=== PATIENT | female | born 1970 | race Caucasian/White ===

== ENCOUNTER 2020-12-19 04:51 | Emergency (ER) | payer BC ==
[2020-12-19] MEDS ORDERED: Famotidine 20 MG/2 ML SDV IVPUSH ONE (05:04)
[2020-12-19] MEDS ORDERED: methylPREDNISolone Sodium Succinate 125 MG/2 ML SDV IVPUSH ONE (05:04)
[2020-12-19] MEDS ORDERED: EPINEPHrine 1 MG/ML SDV SUBCUT ONE (05:04)
--- NOTE | 2020-12-19 05:05 | EDM.PDOC ---
<Dannie Bell - Last Filed: 12/19/20 08:33> ED HPI GENERAL MEDICAL PROBLEM - General Chief Complaint: Allergic Reaction Stated Complaint: ALLERGIC REACTION- TONGUE SWOLLEN Time Seen by Provider: 12/19/20 04:54 - Related Data Allergies Allergy/AdvReac Type Severity Reaction Status Date / Time erythromycin base Allergy Vomiting Verified 12/19/20 04:57 Home Meds: Home Meds predniSONE 40 mg PO WITHBREAKFAST 5 Days #10 tab 12/19/20 [Rx] Course - Re-Assessments/Exams Free Text/Narrative Re-Assessment/Exam: 12/19/20 08:33 Patient remains without any symptoms. She notes that she has an EpiPen at home because this happened before. Recommend follow-up with process control technician. I prescribed her 5-day course of prednisone. Return precautions were discussed at length and patient understands Departure - Departure Time of Disposition: 08:34 Disposition: Home, Self-Care 01 Condition: Good Clinical Impression: Allergic reaction Qualifiers: Encounter type: initial encounter Qualified Code(s): T78.40XA - Allergy, unspecified, initial encounter - Discharge Information Prescriptions: predniSONE 40 mg PO WITHBREAKFAST 5 Days #10 tab Instructions: Allergies, Adult Referrals: Yareli Headley NP [Primary Care Provider] - Forms: ED Department Discharge Additional Instructions: The following information is given to patients seen in the emergency department who are being discharged to home. This information is to outline your options for follow-up care. We provide all patients seen in our emergency department with a follow-up referral. The need for follow-up, as well as the timing and circumstances, are variable depending upon the specifics of your emergency department visit. If you don't have a primary care physician on staff, we will provide you with a referral. We always advise you to contact your personal physician following an emergency department visit to inform them of the circumstance of the visit and for follow-up with them and/or the need for any referrals to a consulting specialist. The emergency department will also refer you to a specialist when appropriate. This referral assures that you have the opportunity for follow-up care with a specialist. All of these measure are taken in an effort to provide you with optimal care, which includes your follow-up. Under all circumstances we always encourage you to contact your private physic aicha who remains a resource for coordinating your care. When calling for follow- up care, please make the office aware that this follow-up is from your recent emergency room visit. If for any reason you are refused follow-up, please contact the [facility] Emergency Department at and asked to speak to the emergency department charge nurse. Please follow up with your primary care physician. If you do not have a primary care physician, see below: [facility] [address], [place] [id number] [facility] [address], [place] [id number] [facility] [address], [place] [address] <David Kirk - Last Filed: 12/20/20 02:38> ED HPI GENERAL MEDICAL PROBLEM - General Source of Information: Reports: Patient History Limitations: Reports: No Limitations - History of Present Illness INITIAL COMMENTS - FREE TEXT/NARRATIVE: Patient is a 50-year-old female presents today for tongue swelling. States that she woke up this morning around 4 AM and felt her tongue was swollen speaking bigger. Patient dates that is hard for her to speak but she is able to swallow and breathe without issue. She denies any known allergies states that she did get some hives a few days ago out of nowhere. Patient denies any rashes now difficulty breathing or swallowing just a swelling of her tongue. Past Medical History - Past Health History Medical/Surgical History: Denies Medical/Surgical History - Infectious Disease History Infectious Disease History: Reports: Chicken Pox, Measles, Mumps Social & Family History - Family History Family Medical History: No Pertinent Family History - Tobacco Use Tobacco Use Status *Q: Never Tobacco User - Caffeine Use Caffeine Use: Reports: None - Recreational Drug Use Recreational Drug Use: No ED ROS ALLERGIC REACTION - Review of Systems Review Of Systems: See Below Constitutional: Reports: No Symptoms HEENT: Reports: Other (Tongue swelling) Respiratory: Reports: No Symptoms Cardiovascular: Reports: No Symptoms Endocrine: Reports: No Symptoms GI/Abdominal: Reports: No Symptoms : Reports: No Symptoms Musculoskeletal: Reports: No Symptoms Skin: Reports: No Symptoms Neurological: Reports: No Symptoms Psychiatric: Reports: No Symptoms Hematologic/Lymphatic: Reports: No Symptoms Immunologic: Reports: No Symptoms ED EXAM GENERAL NO PERIP PULSE - Physical Exam Exam: See Below Exam Limited By: No Limitations General Appearance: Alert, WD/WN, Mild Distress Throat/Mouth: Other (Tongue swelling and large) Head: Atraumatic Neck: Normal Inspection Respiratory/Chest: No Respiratory Distress, Lungs Clear, Normal Breath Sounds Cardiovascular: Normal Peripheral Pulses, Regular Rate, Rhythm GI/Abdominal: Normal Bowel Sounds, Soft, Non-Tender Extremities: Normal Inspection Neurological: Alert, Oriented, CN II-XII Intact, Normal Cognition, Normal Gait Course - Vital Signs Last Recorded V/S: Last Vital Signs Temp 98.1 F 12/19/20 09:04 Pulse 82 12/19/20 09:04 Resp 20 12/19/20 09:04 BP 100/64 12/19/20 09:04 Pulse Ox 98 12/19/20 09:04 - Orders/Labs/Meds Labs: Laboratory Tests 12/19/20 12/19/20 Range/Units 05:20 05:20 WBC 7.70 (4.0-11.0) K/uL RBC 4.10 L (4.30-5.90) M/uL Hgb 13.2 (12.0-16.0) g/dL Hct 38.8 (36.0-46.0) % MCV 94.6 (80.0-98.0) fL MCH 32.2 H (27.0-32.0) pg MCHC 34.0 (31.0-37.0) g/dL RDW Std Deviation 45.5 (28.0-62.0) fl RDW Coeff of Iveth 13 (11.0-15.0) % Plt Count 356 (150-400) K/uL MPV 9.60 (7.40-12.00) fL Neut % (Auto) 45.3 L (48.0-80.0) % Lymph % (Auto) 40.3 H (16.0-40.0) % Leon % (Auto) 8.1 (0.0-15.0) % Eos % (Auto) 5.5 (0.0-7.0) % Baso % (Auto) 0.8 (0.0-1.5) % Neut # (Auto) 3.5 (1.4-5.7) K/uL Lymph # (Auto) 3.1 H (0.6-2.4) K/uL Leon # (Auto) 0.6 (0.0-0.8) K/uL Eos # (Auto) 0.4 (0.0-0.7) K/uL Baso # (Auto) 0.1 (0.0-0.1) K/uL Nucleated RBC % 0.0 /100WBC Nucleated RBCs # 0 K/uL Sodium 137 (136-145) mmol/L Potassium 4.1 (3.5-5.1) mmol/L Chloride 104 (98-107) mmol/L Carbon Dioxide 24.2 (21.0-32.0) mmol/L BUN 15 (7.0-18.0) mg/dL Creatinine 1.0 (0.6-1.0) mg/dL Est Cr Clr Drug Dosing 53.23 mL/min Estimated GFR (MDRD) 58.7 ml/min Glucose 100 (74-106) mg/dL Calcium 8.7 (8.5-10.1) mg/dL Meds: Medications Discontinued Medications Generic Name Dose Route Start Last Admin Trade Name Freq PRN Reason Stop Dose Admin Epinephrine HCl 0.3 mg 12/19/20 05:04 12/19/20 05:11 Epinephrine 1 Mg/Ml Sdv SUBCUT 12/19/20 05:05 0.3 mg ONETIME ONE Administration Famotidine 20 mg 12/19/20 05:04 12/19/20 05:13 Famotidine 20 Mg/2 Ml Sdv IVPUSH 12/19/20 05:05 20 mg ONETIME ONE Administration Tranexamic Acid 1,000 mg/ 110 mls @ 600 mls/hr 12/19/20 05:41 12/19/20 05:58 Sodium Chloride IV 12/19/20 05:51 600 mls/hr ONETIME ONE Administration Methylprednisolone Sodium Succinate 125 mg 12/19/20 05:04 12/19/20 05:14 Methylprednisolone Sodium Succinate 125 Mg/2 Ml Sdv IVPUSH 12/19/20 05:05 125 mg ONETIME ONE Administration Ondansetron HCl 4 mg 12/19/20 06:28 12/19/20 06:34 Ondansetron 4 Mg/2 Ml Sdv IVPUSH 12/19/20 06:29 4 mg ONETIME ONE Administration Critical Care Note - Critical Care Note Total Time (mins): 45 Comments: Critical Care Procedure Note Authorized and Performed by: Dr. Kirk Total critical care time: Approximately Due to a high probability of clinically significant, life threatening deterioration, the patient required my highest level of preparedness to intervene emergently and I personally spent this critical care time directly and personally managing the patient. This critical care time included obtaining a history; examining the patient; pulse oximetry; ordering and review of studies; arranging urgent treatment with development of a management plan; evaluation of patient's response to treatment; frequent reassessment; and, discussions with other providers. This critical care time was performed to assess and manage the high probability of imminent, life-threatening deterioration that could result in multi-organ failure. It was exclusive of separately billable procedures and treating other patients and teaching time. Sepsis Event Note (ED) - Evaluation Sepsis Screening Result: No Definite Risk - Assessment/Plan Plan: Patient is a 50-year-old female presents today for swelling of her tongue. Patient dates she has some hives a few days ago but is unsure came from has no k nown allergies has not come into contact with any new detergents or lotions. Patient comes here was swollen started become bigger. Initially gave her epi and steroids without much relief. We did gave her TXA which helped improve her symptoms. Patient has been stable will be signed to my colleague who observe her she stays stable can be discharged home.
[2020-12-19] MEDS ORDERED: Tranexamic Acid 1,000 MG in Sodium Chloride 0.9% 100 ML IV ONE (05:41)
[2020-12-19] MEDS ORDERED: Ondansetron 4 MG/2 ML SDV IVPUSH ONE (06:28)
[2020-12-19 06:55] LABS: CARBON DIOXIDE,CO2 24.2 mmol/L (21.0-32.0); POTASSIUM,K 4.1 mmol/L (3.5-5.1)
== END 2020-12-19 09:04 | disposition home or self-care (01) ==
LOC: MW.ED 04:51
DX: T78.40XA Allergy, unspecified, initial encounter (principal); Z88.1 Allergy status to other antibiotic agents
CPT/HCPCS: 80048; 85025; 96372; 96374; 96375; 99285; J0171; J2405; J2930; J3490

== ENCOUNTER 2021-02-07 23:55 | Emergency (ER) | payer BC ==
[2021-02-08] MEDS ORDERED: Sodium Chloride 0.9% 2.5 ML Syringe FLUSH PRN (00:16)
[2021-02-08] MEDS ORDERED: Dexamethasone 10 MG/ML SDV IVPUSH ONE (00:16)
[2021-02-08] MEDS ORDERED: diphenhydrAMINE 50 MG/ML SDV IVPUSH ONE (00:16)
[2021-02-08] MEDS ORDERED: Sodium Chloride 0.9% 10 ML Syringe FLUSH PRN (00:16)
[2021-02-08] MEDS ORDERED: Famotidine 20 MG/2 ML SDV IVPUSH ONE (00:17)
[2021-02-08] MEDS ORDERED: Tranexamic Acid 1,000 MG in Sodium Chloride 0.9% 100 ML IV ONE (00:17)
[2021-02-08] MEDS ORDERED: EPINEPHrine 1 MG/1 ML Amp SUBCUT ONE (00:17)
[2021-02-08] MEDS ORDERED: EPINEPHrine 1 MG/ML SDV ONE (00:19)
--- NOTE | 2021-02-08 00:20 | EDM.PDOC ---
ED HPI GENERAL MEDICAL PROBLEM - General Chief Complaint: Allergic Reaction Stated Complaint: FACE AND LIPS SWELLING Time Seen by Provider: 02/08/21 00:14 - History of Present Illness INITIAL COMMENTS - FREE TEXT/NARRATIVE: History of present illness: Patient's lips and face are swollen tonight. She has no airway problem and her voice is normal. She says she narrowly escaped intubation last time. She is also seeing the specialist who wants her to have C1 esterase inhibitor antigen C1 esterase inhibitor functional C4 complement and tryptase done today. She said tranexamic acid was the only thing that really saved her last time she was in the emergency department. I reviewed the chart and she received Benadryl Pepcid steroids and tranexamic acid as well as an epi injection when she was here last time. [] Review of systems: As per history of present illness and below otherwise all systems reviewed and negative. Past medical history: As per history of present illness and as reviewed below otherwise noncontrib utory. Surgical history: As per history of present illness and as reviewed below otherwise noncontributory. Social history: No reported history of drug or alcohol abuse. Family history: As per history of present illness and as reviewed below otherwise noncontributory. Physical exam: Constitutional - well developed, well-nourished and in no acute distress HEENT -patient has external swelling about the malar prominences in the lips. She has a normal voice no trismus no ptyalism and no trouble breathing. Normocephalic, no evidence of trauma - external nose and mouth normal - no mass in neck and no JVD - mucosae moist EYES - full EOM, PERRL, no icterus - no evidence of inflammation, injection, or drainage Respiratory - no respiratory distress, equal bilateral expansion, lungs clear to auscultation and no abnormal lung sounds Cardiovascular - Regular Rhythm with S1 and S2 appreciated and no murmur, gallop or rub. GI - abdomen soft without distension or organomegaly - normal bowel sounds - no guard or rebound Musculoskeletal no gross deformity of long bones or joints - no tenderness, swelling or edema Neurologic - Alert and oriented times four - CN II-XII grossly intact - motor sensory and coordination symmetrically normal Psychiatric - appropriate mood and affect with normal thought content Hematologic - No petechiae or purpura - mucosa appropriate color and sclera not pale - normal nail bed color and refill Integument - no rash or evidence of trauma - normal turgor Diagnostics: [] Therapeutics: [] Impression: [] Plan: [] Definitive disposition and diagnosis as appropriate pending reevaluation and review of above. - Related Data Allergies Allergy/AdvReac Type Severity Reaction Status Date / Time erythromycin base Allergy Vomiting Verified 12/19/20 04:57 Home Meds: Home Meds predniSONE 40 mg PO WITHBREAKFAST 5 Days #10 tab 12/19/20 [Rx] Past Medical History - Past Health History Medical/Surgical History: Denies Medical/Surgical History - Infectious Disease History Infectious Disease History: Reports: Chicken Pox, Measles, Mumps Social & Family History - Family History Family Medical History: No Pertinent Family History - Caffeine Use Caffeine Use: Reports: None ED ROS ALLERGIC REACTION - Review of Systems Review Of Systems: Comprehensive ROS is negative, except as noted in HPI. ED EXAM GENERAL NO PERIP PULSE - Physical Exam Exam: See Below Course - Vital Signs Text/Narrative:: I have requested the lab order C4 complement, tryptase, C 1 esterase inhibitor antigen and C1 esterase inhibitor functional. She has a specialist A1c's test done when she has an attack and therefore if it is possible will send these out tonight. 0050 a.m. the patient is no worse and no better. She does not have any airway involvement at this time. Her lips are swollen and not changed since before we started the medications that we're giving. 020 9 AM patient's labs are improved and she wants to be discharged. Last Recorded V/S: Last Vital Signs Temp 35.9 C L 02/08/21 00:11 Pulse 73 02/08/21 01:55 Resp 18 02/08/21 01:55 BP 115/63 02/08/21 01:55 Pulse Ox 96 02/08/21 01:55 - Orders/Labs/Meds Orders: Active Orders 24 hr Category Date Time Status C1 ESTERASE INHIBITOR, SERUM [REF] Routine Lab 02/08/21 01:10 Received COMPLEMENT C4 [REF] Routine Lab 02/08/21 01:10 Received MISC TEST Routine Lab 02/08/21 01:10 Received TRYPTASE [REF] Routine Lab 02/08/21 01:10 Received Sodium Chloride 0.9% [Saline Flush] Med 02/08/21 00:16 Active 10 ml FLUSH ASDIRECTED PRN Sodium Chloride 0.9% [Saline Flush] Med 02/08/21 00:16 Active 2.5 ml FLUSH ASDIRECTED PRN Saline Lock Insert [OM.PC] Stat Oth 02/08/21 00:16 Ordered Medication Orders Sodium Chloride (Sodium Chloride 0.9% 10 Ml Syringe) 10 ml FLUSH ASDIRECTED PRN PRN Reason: Keep Vein Open Sodium Chloride (Sodium Chloride 0.9% 2.5 Ml Syringe) 2.5 ml FLUSH ASDIRECTED PRN PRN Reason: Keep Vein Open Labs: Laboratory Tests 02/08/21 02/08/21 Range/Units 00:10 00:10 WBC 8.55 (4.0-11.0) K/uL RBC 3.99 L (4.30-5.90) M/uL Hgb 13.0 (12.0-16.0) g/dL Hct 38.4 (36.0-46.0) % MCV 96.2 (80.0-98.0) fL MCH 32.6 H (27.0-32.0) pg MCHC 33.9 (31.0-37.0) g/dL RDW Std Deviation 42.5 (28.0-62.0) fl RDW Coeff of Iveth 12 (11.0-15.0) % Plt Count 414 H (150-400) K/uL MPV 10.00 (7.40-12.00) fL Neut % (Auto) 46.8 L (48.0-80.0) % Lymph % (Auto) 37.2 (16.0-40.0) % Barton % (Auto) 9.7 (0.0-15.0) % Eos % (Auto) 5.7 (0.0-7.0) % Baso % (Auto) 0.6 (0.0-1.5) % Neut # (Auto) 4.0 (1.4-5.7) K/uL Lymph # (Auto) 3.2 H (0.6-2.4) K/uL Barton # (Auto) 0.8 (0.0-0.8) K/uL Eos # (Auto) 0.5 (0.0-0.7) K/uL Baso # (Auto) 0.1 (0.0-0.1) K/uL Sodium 135 L (136-145) mmol/L Potassium 4.0 (3.5-5.1) mmol/L Chloride 102 (98-107) mmol/L Carbon Dioxide 26.0 (21.0-32.0) mmol/L BUN 17 (7.0-18.0) mg/dL Creatinine 1.0 (0.6-1.0) mg/dL Est Cr Clr Drug Dosing 53.23 mL/min Estimated GFR (MDRD) 58.7 ml/min Glucose 99 (74-106) mg/dL Calcium 10.0 (8.5-10.1) mg/dL Total Bilirubin 0.4 (0.2-1.0) mg/dL AST 14 L (15-37) IU/L ALT 26 (14-63) IU/L Alkaline Phosphatase 66 (46-116) U/L Total Protein 7.6 (6.4-8.2) g/dL Albumin 4.1 (3.4-5.0) g/dL Globulin 3.5 (2.6-4.0) g/dL Albumin/Globulin Ratio 1.2 (0.9-1.6) Meds: Medications Generic Name Dose Route Start Last Admin Trade Name Anjum PRN Reason Stop Dose Admin Sodium Chloride 10 ml 02/08/21 00:16 Sodium Chloride 0.9% 10 Ml Syringe FLUSH ASDIRECTED PRN Keep Vein Open Sodium Chloride 2.5 ml 02/08/21 00:16 Sodium Chloride 0.9% 2.5 Ml Syringe FLUSH ASDIRECTED PRN Keep Vein Open Discontinued Medications Generic Name Dose Route Start Last Admin Trade Name Anjum PRN Reason Stop Dose Admin Dexamethasone 10 mg 02/08/21 00:16 02/08/21 00:29 Dexamethasone 10 Mg/Ml Sdv IVPUSH 02/08/21 00:17 10 mg ONETIME ONE Administration Diphenhydramine HCl 25 mg 02/08/21 00:16 02/08/21 00:28 Diphenhydramine 50 Mg/Ml Sdv IVPUSH 02/08/21 00:17 25 mg ONETIME ONE Administration Epinephrine HCl 0.3 mg 02/08/21 00:17 02/08/21 00:28 Epinephrine 1 Mg/1 Ml Amp SUBCUT 02/08/21 00:18 0.3 mg ONETIME ONE Administration Epinephrine HCl Confirm 02/08/21 00:19 02/08/21 00:31 Epinephrine 1 Mg/Ml Sdv Administered 02/08/21 00:20 Not Given Dose 1 mg .ROUTE .STK-MED ONE Famotidine 20 mg 02/08/21 00:17 02/08/21 00:29 Famotidine 20 Mg/2 Ml Sdv IVPUSH 02/08/21 00:18 20 mg ONETIME ONE Administration Tranexamic Acid 1,000 mg/ 110 mls @ 660 mls/hr 02/08/21 00:17 02/08/21 00:47 Sodium Chloride IV 02/08/21 00:26 660 mls/hr ONETIME ONE Administration Tranexamic Acid Confirm 02/08/21 00:21 02/08/21 00:32 Tranexamic Acid 1,000 Mg/10 Ml Amp Administered 02/08/21 00:22 Not Given Dose 1,000 mg .ROUTE .STK-MED ONE Departure - Departure Time of Disposition: 02:11 Disposition: Home, Self-Care 01 Condition: Good Clinical Impression: Angioedema - Discharge Information Instructions: Angioedema, [id number] Referrals: Yareli Headley NP [Primary Care Provider] - Forms: ED Department Discharge Additional Instructions: Check with your estimator project manager regarding availability of tranexamic acid for oral intake. I did not find a prescription equivalent that was available in the [place]. [facility] [address] [place] [address] [place] [address] The following information is given to patients seen in the emergency department who are being discharged to home. This information is to outline your options for follow-up care. We provide all patients seen in our emergency department with a follow-up referral. The need for follow-up, as well as the timing and circumstances, are variable depending upon the specifics of your emergency department visit. If you don't have a primary care physician on staff, we will provide you with a referral. We always advise you to contact your personal physician following an emergency department visit to inform them of the circumstance of the visit and for follow-up with them and/or the need for any referrals to a consulting specialist. The emergency department will also refer you to a specialist when appropriate. This referral assures that you have the opportunity for follow-up care with a specialist. All of these measure are taken in an effort to provide you with optimal care, which includes your follow-up. Under all circumstances we always encourage you to contact your private physician who remains a resource for coordinating your care. When calling for follow-up care, please make the office aware that this follow-up is from your recent emergency room visit. If for any reason you are refused follow-up, please contact the [facility] Emergency Department at and asked to speak to the emergency department charge nurse. Sepsis Event Note (ED) - Focused Exam Vital Signs: Vital Signs Temp Pulse Resp BP Pulse Ox 02/08/21 01:55 73 18 115/63 96 02/08/21 00:48 66 18 112/67 98 02/08/21 00:11 35.9 C L 68 18 128/75 96 - My Orders Last 24 Hours: My Active Orders 02/08/21 00:16 Sodium Chloride 0.9% [Saline Flush] 10 ml FLUSH ASDIRECTED PRN Sodium Chloride 0.9% [Saline Flush] 2.5 ml FLUSH ASDIRECTED PRN Saline Lock Insert [OM.PC] Stat 02/08/21 01:10 C1 ESTERASE INHIBITOR, SERUM [REF] Routine COMPLEMENT C4 [REF] Routine MISC TEST Routine TRYPTASE [REF] Routine - Assessment/Plan Last 24 Hours: My Active Orders 02/08/21 00:16 Sodium Chloride 0.9% [Saline Flush] 10 ml FLUSH ASDIRECTED PRN Sodium Chloride 0.9% [Saline Flush] 2.5 ml FLUSH ASDIRECTED PRN Saline Lock Insert [OM.PC] Stat 02/08/21 01:10 C1 ESTERASE INHIBITOR, SERUM [REF] Routine COMPLEMENT C4 [REF] Routine MISC TEST Routine TRYPTASE [REF] Routine
== END 2021-02-08 02:20 | disposition home or self-care (01) ==
LOC: MW.ED 23:55
DX: T78.3XXA Angioneurotic edema, initial encounter (principal); Z88.1 Allergy status to other antibiotic agents
CPT/HCPCS: 36415; 80053; 83520; 85025; 86160; 96372; 96374; 96375; 99284; J0171; J1100; J1200; J3490